=== PATIENT | male | born 1945 | race Caucasian/White ===

== ENCOUNTER 2022-01-07 08:00 | Inpatient (IN) | payer MEDICARE, OTHER ==
[~2022-01-07] VITALS: Ht 164.5 cm; Wt 57.0 kg
[2022-01-07] MEDS ORDERED: ONDANSETRON 4 MG/2 ML (SDV) Z0FRAN IV PRN (09:45)
[2022-01-07] MEDS ORDERED: ACETAMINOPHEN 325 MG TABLET PO PRN (09:45)
[2022-01-07] MEDS ORDERED: MELATONIN 3 MG TABLET PO PRN (09:45)
[2022-01-07] MEDS ORDERED: CALCIUM CARBONATE 500 MG (TUMS) TAB.CHEW PO PRN (09:45)
[2022-01-07] MEDS ORDERED: polyethylene glycoL POWDER 17 GM (MIRALAX) PACK PO PRN ×2 (09:45→14:00)
[2022-01-07] MEDS ORDERED: DILT120T3 PO (10:58)
[2022-01-07] MEDS ORDERED: METO50TA15 PO (10:58)
[2022-01-07] MEDS ORDERED: BENZ100C18 PO (10:58)
[2022-01-07] MEDS ORDERED: BUDE10.2 IH (10:58)
[2022-01-07] MEDS ORDERED: PNV1CAPS15 PO (10:58)
[2022-01-07] MEDS ORDERED: TIOT4MIS2 IH (10:58)
[2022-01-07] MEDS ORDERED: WARF-48 PO ×2 (10:58→15:53)
[2022-01-07] MEDS ORDERED: ALB0.5V INH (10:58)
[2022-01-07] MEDS ORDERED: DOCU-143 PO (10:58)
[2022-01-07] MEDS ORDERED: OMEP20CA18 PO (10:58)
[2022-01-07] MEDS ORDERED: BUSP10TA95 PO (10:58)
[2022-01-07] MEDS ORDERED: GUAI400T86 PO (10:58)
[2022-01-07] MEDS ORDERED: ALBU6.7H8 INH (10:58)
[2022-01-07] MEDS ORDERED: PRD10T PO (10:58)
[2022-01-07] MEDS ORDERED: LISI10TA25 PO (10:58)
[2022-01-07] MEDS ORDERED: LEVO5TAB12 PO (10:58)
[2022-01-07] MEDS ORDERED: POLY17PO54 PO (10:58)
[2022-01-07] MEDS ORDERED: ONDA-105 PO (10:58)
--- NOTE | 2022-01-07 11:37 | History & Physical-Hospitalist ---
History of Present Illness HPI/Chief Complaint Patient is 76-year-old male with past medical history of COPD, atrial fibrillation, lung cancer who presented to the emergency department at [facility] due to shortness of breath. He reports chronic oxygen dependency and shortness of breath but this morning it acutely worsened. He normally is able to belch and get relief but that did not provide him any relief today. He decided to seek evaluation in the emergency department when it persisted and was found to be in atrial fibrillation with rapid ventricular rate in the 160s. He was placed on a Cardizem drip and transferred here for cardiology services. He reports feeling much better now and has no dyspnea. He denies any chest pain, palpitations, diaphoresis, nausea, vomiting. He does report a long history of atrial fibrillation for which she is on Coumadin for anticoagulation. He is unsure what other cardiac meds he is on. He did just moved to town on January 03. He reports being compliant with all of his medications throughout the move. Source: patient Date Seen 01/07/22 Time Seen by a Provider: 10:15 Attending Physician No,Local Physician PCP Admitting Physician: Mao Ingram MD Attending Physician: Mao Ingram MD Referring Physician Date of Admission Jan 07, 2022 at 09:45 Home Medications & Allergies Home Medications Reviewed patient Home Medication Reconciliation performed by pharmacy medication reconciliations pc technician and/or nursing. Patients Allergies have been reviewed. Allergies Allergies Coded Allergies No Allergy Information Available (Unverified01/07/22) Past Icvihyl-Obrxsb-Rfcymz Hx Patient Social History Employed/Student: retired Tobacco Use?: Yes Tobacco type used: Cigarettes Smoking Status: Current Everyday Smoker Use of E-Cig and/or Vaping dev: No Substance use?: No Alcohol Use?: No Pt feels they are or have been: No Current Status Advance Directives: No Communicates: Verbally Primary Language: [place] Citizen Preferred Spoken Language: [place] Citizen Sensory deficits: Hearing impairment Past Medical History Surgeries: Lobectomy COPD Atrial Fibrillation, Hypertension Lung, Esophageal Family Medical History Reviewed Nursing Family Hx Heart Disease Review of Systems Constitutional: No chills, No diaphoresis, No fever, No malaise EENTM: no symptoms reported Respiratory: dyspnea on exertion; No hemoptysis, No phlegm; short of breath Cardiovascular: No chest pain; edema; No palpitations Gastrointestinal: No abdominal pain, No constipation, No diarrhea, No nausea, No vomiting Genitourinary: no symptoms reported Musculoskeletal: no symptoms reported Skin: no symptoms reported Psychiatric/Neurological: No Symptoms Reported Physical Exam Physical Exam Vital Signs Vital Signs - First Documented 01/07/22 01/07/22 10:00 11:41 Temp 36.4 Pulse 149 Resp 23 B/P (MAP) 129/98 Pulse Ox 95 O2 Delivery Nasal Cannula O2 Flow Rate 3.50 Capillary Refill : Height, Weight, BMI Height: '" Weight: lbs. oz. kg; 21.06 BMI Method: General Appearance: No Apparent Distress, WD/WN, Chronically ill, Thin HEENT: PERRL/EOMI, Moist Mucous Membranes; No Scleral Icterus (L), No Scleral Icterus (R) Neck: Normal Inspection, Supple Respiratory: Lungs Clear, No Accessory Muscle Use, No Respiratory Distress Cardiovascular: No JVD, No Murmur, Irregularly Irregular, Tachycardia Gastrointestinal: Normal Bowel Sounds, Non Tender, Soft Extremity: Normal Capillary Refill, No Calf Tenderness, Pedal Edema, Swelling (2+ to calves) Neurologic/Psychiatric: Alert, Oriented x3, Normal Mood/Affect Results Results/Procedures Labs Laboratory Tests 01/08/22 04:55 Patient resulted labs reviewed. Assessment/Plan Admission Diagnosis a fib with RVR Admission Status: Inpatient Order (span 2 midnights) Reason for Inpatient Admission: see below Assessment and Plan a fib with RVR Follows with Dr Hamm in [facility] Currently on cardizem gtt Resume home Warfarin when med rec done Tele Cardiology consulted, appreciate recs Echo ordered COPD Lung Cancer Esophageal cancer Tobacco abuse Wears oxygen at baseline Resume home meds when med rec done Reports cancer in remission but also said it's in his shoulder? Will attempt to get records from [place] Diagnosis/Problems Diagnosis/Problems (1) COPD (chronic obstructive pulmonary disease) Qualifiers: COPD type: emphysema Emphysema type: unspecified Qualified Codes: J43.9 - Emphysema, unspecified (2) Essential (primary) hypertension (3) Tobacco abuse (4) Lung cancer Qualifiers: Laterality: unspecified laterality Lung location: unspecified part of lung Qualified Codes: C34.90 - Malignant neoplasm of unspecified part of unspecified bronchus or lung (5) Esophageal cancer (6) Atrial fibrillation with RVR MAO INGRAM MD Jan 07, 2022 11:37
[2022-01-07] MEDS: dilTIAZem DRIP PRE-MIX 125 ML IV SCH ×2 (12:03→18:03)
--- NOTE | 2022-01-07 13:11 | Tele-ICU Consult ---
History of Present Illness History of Present Illness Time Seen by Provider: 13:11 Date of Admission (Tele-ICU Physician , consultation) Available chart/ vitals / labs / Images reviewed H&P is from ER notes Patient's information available about PMH, Shx, Fhx allergy reviewed in EMR. ROS as per chart and RN report Now in ICU, hemodynamically stable Video assessment done using teleICU camera, rest of exam as per RN Discussed with RN. Consultants: [facility] course: Transferred form outside ER - no labs or images A/P A fib RVR - cardizemn gtt - AC with coumadin - cards consulted - ECHO pending COPD - chronic hypoxic resp failure - home o2 h/o lung ca - no records Lines : (Central Line Necessity Reviewed) Li: OG: Nutrition: Analgesia: Anxiety/ delirium VTE Prophylaxis: Stress Ulcer Prophylaxis: Glycemic Control: Plans in collaboration with bedside consultants and IM MDs. Discussed with RN to reach out if any questions or concerns A total of 31 minutes of critical care time was devoted to this patient today, required to treat and/or prevent further deterioration of critical care condition ( as above ) . Allergies and Home Medications Allergies Coded Allergies: No Allergy Information Available (Unverified , 01/07/22) Home Medications Albuterol Sulfate 2.5 Mg/0.5 Ml Vial.neb, 2.5 MG INH Q4H, (Reported) Albuterol Sulfate 90 Mcg Hfa.aer.ad, 6.7 GM INH PRN, (Reported) Benzonatate 100 Mg Capsule, 100 MG PO TID PRN for COUGH, (Reported) Budesonide/Formoterol Fumarate 160 Mcg-4.5 Mcg/Actuation Hfa.aer.ad, 2 PUFF IH BID, (Reported) Buspirone HCl 10 Mg Tablet, 10 MG PO HS, (Reported) Diltiazem HCl 120 Mg Tablet, 180 MG PO DAILY, (Reported) Docusate Sodium 100 Mg Capsule, 100 MG PO HS, (Reported) Guaifenesin 400 Mg Tablet, 600 MG PO BID PRN for COUGH, (Reported) Levocetirizine Dihydrochloride 5 Mg Tablet, 5 MG PO DAILY, (Reported) Lisinopril 10 Mg Tablet, 10 MG PO DAILY, (Reported) Metoprolol Tartrate 50 Mg Tablet, 50 MG PO BID, (Reported) Omeprazole 20 Mg Capsule.dr, 20 MG PO DAILY, (Reported) Ondansetron HCl 4 Mg Tablet, 4 MG PO Q6H PRN for NAUSEA/VOMITING, (Reported) Pnv Combo#47/Iron/FA #1/Dha 27 Mg Iron-1 Mg-300 Mg Capsule, 1 EACH PO DAILY, (Reported) Polyethylene Glycol 3350 17 Gram Powd.pack, 17 GM PO BID PRN for CONSTIPATION- 1ST LINE, (Reported) Prednisone 10 Mg Tab, 10 MG PO DAILY, (Reported) Tiotropium [place] 2.5 Mcg/Actuation Mist.inhal, 2 PUFF IH DAILY, (Reported) Warfarin Sodium 5 Mg Tablet, 5 MG PO DAILY, (Reported) Past Medical/Social/Family Hx Patient Social History Employed/Student: retired Tobacco Use?: Yes Tobacco type used: Cigarettes Smoking Status: Current Everyday Smoker Use of E-Cig and/or Vaping dev: No Substance use?: No Alcohol Use?: No Pt stated abuse/neglect: No Current Status Advance Directives: No Communicates: Verbally Primary Language: Amharic Preferred Spoken Language: Amharic Sensory deficits: Hearing impairment Review of Systems Constitutional: see HPI Focused Exam Height, Weight, BMI Height: '" Weight: lbs. oz. kg; 21.06 BMI Method: Exam Exam Patient acknowledged, consented, and participated in this virtual visit which was conducted using real time audio/video Vital Signs Date Time Temp Pulse Resp B/P (MAP) Pulse Ox O2 Delivery O2 Flow Rate FiO2 01/07/22 11:41 36.4 01/07/22 11:00 118 17 116/78 94 Nasal Cannula 3.50 01/07/22 10:02 122 01/07/22 10:00 149 23 129/98 95 Nasal Cannula 3.50 Height & Weight Height: '" Weight: lbs. oz. kg; 21.06 BMI Method: General Appearance: No Apparent Distress, WD/WN, Chronically ill, Thin HEENT: PERRL/EOMI, Moist Mucous Membranes; No Scleral Icterus (L), No Scleral Icterus (R) Neck: Normal Inspection, Supple Respiratory: Lungs Clear, No Accessory Muscle Use, No Respiratory Distress Cardiovascular: No JVD, No Murmur, Irregularly Irregular, Tachycardia Extremity: Normal Capillary Refill, No Calf Tenderness, Pedal Edema, Swelling (2+ to calves) Neurologic/Psychiatric: Alert, Oriented x3, Normal Mood/Affect Assessment/Plan Assessment/Plan ` ANSELMO JACOBO MD Jan 07, 2022 13:11
--- NOTE | 2022-01-07 13:13 | Occ Therapy Progress Note ---
Therapy Progress Note OT orders received and chart reviewed. Pt is currently on hold on this date, OT will attempt evaluation tomorrow. Pt's daughter present and state pt is typically independent with ADLs and functional mobility, no AD, as long as he has extra time to complete tasks. RASHEL CUELLAR OT Jan 07, 2022 13:13
--- NOTE | 2022-01-07 13:35 | Physical Therapy Progress Note ---
Therapy Progress Note Patient on Hold per RN due to elevated HR. Will attempt in MATT Min PT Jan 07, 2022 13:35
[2022-01-07] MEDS ORDERED: GUAIFENESIN 600 MG PO PRN (14:00)
[2022-01-07] MEDS ORDERED: RT-ALBUTEROL SULF 2.5 MG/3 ML PRE-MIX VIAL INH PRN (14:00)
[2022-01-07] MEDS ORDERED: BENZONATATE 100 MG (TESSALON) CAPSULE PO PRN (14:00)
[2022-01-07] MEDS ORDERED: guaiFENesin (MUCINEX) 600 MG TAB PO PRN (14:15)
[2022-01-07] MEDS ORDERED: DILT180C84 PO (15:53)
--- NOTE | 2022-01-07 17:10 | Consultation-Cardiology ---
HPI-Cardiology Cardiology Consultation: Date of Consultation 01/07/22 Date of Admission 01/07/22 Attending Physician Sally,Local Physician Admitting Physician Admitting Physician: Evita Kilpatrick MD Attending Physician: Evita Kilpatrick MD Consulting Physician HATTIE HARPER JR, MD HPI: Time Seen by a Provider: 17:53 Chief Complaint: REASON FOR CONSULTATION: Atrial fibrillation and heart failure. I had the pleasure of seeing Mansi in the intensive care unit at [facility] in [place], [place] today. He has a longstanding history of atrial fibrillation and was following with a safety and security manager in [place], [place]. He just moved to [place] last week. He has a history of intermittent episodes of abdominal bl oating. When this happens, he will drink some soda and then he will belch which will help with the bloating. Sometimes when his bloating gets bad, this will make him feel short of breath. Over the past couple of days he has had increasing bloating which has led to worsening shortness of breath. This morning he could barely breathe and was also coughing and went to [facility] for evaluation. He was found to be in atrial fibrillation with a rapid ventricular rate and also heart failure and was placed on intravenous diltiazem infusion and transferred to our hospital for further treatment. When I saw him in the intensive care unit, he wanted to know when he could go home. He does not get palpitations with the atrial fibrillation. He has chronic dyspnea and wears home oxygen. Now he feels as though his breathing is back to normal. He denies chest pain, paroxysmal nocturnal dyspnea, orthopnea, lightheadedness, syncope, or ankle edema. He lives with a daughter who is a traveling RN. She was present with him at the bedside. He denies any history of stroke, myocardial infarction, heart failure, or diabetes. Certain portions of this document may have been dictated utilizing voice recognition technology. Inherent to this technology, typographical and grammatical errors may exist. As much as I am diligent to identify and correct these mistakes, some errors may remain in the document. Review of Systems-Cardiology Review of Systems Other comments Review of 10 organ systems is as per the history of present illness, otherwise negative. ZYX-Uygves-Wycrhw Hx Patient Social History Employed/Student: retired Smoking Status: Current Everyday Smoker Have you traveled recently?: No Alcohol Use?: No Pt feels they are or have been: No Tobacco type used: Cigarettes Past Medical History PMH As described under Assessment. Family Medical History Family Medical History: He did not report a family history of premature coronary artery disease. Allergies and Home Medications Allergies Coded Allergies: No Allergy Information Available (Unverified , 01/07/22) Patient Home Medication List Home Medication List Reviewed: Yes Albuterol Sulfate (Albuterol Sulfate) 2.5 Mg/0.5 Ml Vial.neb, 2.5 MG INH Q4H, (Reported) Entered as Reported by: IRIS PINK on 01/07/221057 Last Action: Reviewed Albuterol Sulfate (Proventil Hfa) 90 Mcg Hfa.aer.ad, 2 PUFF INH Q6H PRN for SHORTNESS OF BREATH, (Reported) Entered as Reported by: IRIS PINK on 01/07/221057 Last Action: Reviewed Budesonide/Formoterol Fumarate (Symbicort 160-4.5 Mcg Inhaler) 160 Mcg-4.5 Mcg/Actuation Hfa.aer.ad, 2 PUFF IH BID, (Reported) Entered as Reported by: IRIS PINK on 01/07/221057 Last Action: Reviewed Buspirone HCl (Buspirone HCl) 10 Mg Tablet, 10 MG PO BID, (Reported) Entered as Reported by: IRIS PINK on 01/07/221057 Last Action: Reviewed Diltiazem HCl (Diltiazem 24Hr Cd) 180 Mg Cap.er.24h, 180 MG PO DAILY, (Reported) Entered as Reported by: JALIL MORALES on 01/07/22 2626 Last Action: Held Docusate Sodium (Colace) 100 Mg Capsule, 100-200 MG PO DAILY PRN for CONSTIPATION-1ST LINE, (Reported) Entered as Reported by: IRIS PINK on 01/07/221057 Last Action: Reviewed Guaifenesin (Guaifenesin) 400 Mg Tablet, 600 MG PO BID PRN for COUGH, (Reported) Entered as Reported by: IRIS PINK on 01/07/221057 Last Action: Reviewed Levocetirizine Dihydrochloride (Levocetirizine Dihydrochloride) 5 Mg Tablet, 5 MG PO DAILY, (Reported) Entered as Reported by: IRIS PINK on 01/07/221057 Last Action: Reviewed Lisinopril (Lisinopril) 10 Mg Tablet, 10 MG PO DAILY, (Reported) Entered as Reported by: IRIS PINK on 01/07/221057 Last Action: Continued Metoprolol Tartrate (Metoprolol Tartrate) 50 Mg Tablet, 50 MG PO BID, (Reported) Entered as Reported by: IRIS PINK on 01/07/221057 Last Action: Held Omeprazole (Omeprazole) 20 Mg Capsule.dr, 20 MG PO DAILY, (Reported) Entered as Reported by: IRIS PINK on 01/07/221057 Last Action: Reviewed Pnv Combo#47/Iron/FA #1/Dha (Pnv-Dha Softgel) 27 Mg Iron-1 Mg-300 Mg Capsule, 1 EACH PO DAILY, (Reported) Entered as Reported by: IRIS PINK on 01/07/221057 Last Action: Reviewed Polyethylene Glycol 3350 (Polyethylene Glycol 3350) 17 Gram Powd.pack, 17 GM PO BID PRN for CONSTIPATION-1ST LINE, (Reported) Entered as Reported by: IRIS PINK on 01/07/221057 Last Action: Reviewed Prednisone (Prednisone) 10 Mg Tab, 10 MG PO DAILY, (Reported) Entered as Reported by: IRIS PINK on 01/07/221057 Last Action: Reviewed Tiotropium [place] (Spiriva Respimat 2.5MCG/ACTUATION) 2.5 Mcg/Actuation Mist.inhal, 2 PUFF IH BID, (Reported) Entered as Reported by: IRIS PINK on 01/07/221057 Last Action: Reviewed Warfarin Sodium (Warfarin Sodium) 5 Mg Tablet, 5 MG PO MO,,TH,SA, (Reported) Entered as Reported by: IRIS PINK on 01/07/221057 Last Action: Reviewed Warfarin Sodium (Warfarin Sodium) 5 Mg Tablet, 2.5 MG PO SHEA,WE,FR, (Reported) Entered as Reported by: JALIL MORALES on 01/07/22 262 Last Action: Held Discontinued Medications Benzonatate (Tessalon Perles) 100 Mg Capsule, 100 MG PO TID PRN for COUGH, (Reported) Discontinued Reason: No Longer Taking Entered as Reported by: IRIS PINK on 01/07/221057 Last Action: Discontinued Diltiazem HCl (Diltiazem HCl) 120 Mg Tablet, 180 MG PO DAILY, (Reported) Discontinued Reason: Duplicate Order Entered as Reported by: IRIS PINK on 01/07/221057 Last Action: Discontinued Ondansetron HCl (Ondansetron HCl) 4 Mg Tablet, 4 MG PO Q6H PRN for NAUSEA/VOMITING, (Reported) Discontinued Reason: No Longer Taking Entered as Reported by: IRIS PINK on 01/07/221057 Last Action: Discontinued Exam Vital Signs Vital Signs Date Time Temp Pulse Resp B/P (MAP) Pulse Ox O2 Delivery O2 Flow Rate FiO2 01/07/22 15:40 Nasal Cannula 4.00 01/07/22 15:00 112 20 113/95 98 01/07/22 11:41 36.4 Physical Exam General: Alert. No acute distress. He is underweight but appears stated age. He is wearing oxygen by nasal cannula. He appears malnourished. Eye: Extraocular movements are intact. Conjunctivae are clear. There are no xanthelasma. HENT: Normocephalic. Atraumatic. Carotid pulsations 2/2 without bruits. Neck: Jugular venous pressure does not appear elevated. No thyromegaly appreciated. Respiratory: Lungs have decreased breath sounds throughout with some scattered inspiratory wheezes. Respirations are non-labored. Breath sounds are equal. Symmetrical chest wall expansion. Cardiovascular: Normal rate. Irregular rhythm. Distant S1/S2. No murmur. No gallop. Point of maximal impulse is not appear displaced. Good pulses equal in all extremities. Trace bilateral pretibial edema. Gastrointestinal: Soft. Normal bowel sounds. Skin: Skin turgor is normal. There is no pallor. Musculoskeletal: No kyphosis or scoliosis appreciated. Neurologic: Alert and oriented to person, place, time. Cranial nerves 3-12 maritza ear grossly intact. The patient has good motor tone strength in the upper and lower extremities bilaterally. Psychiatric: Cooperative. Appropriate mood & affect. Radiology ECHOCARDIOGRAM (01/07/2022): 1. This is a technically difficult study due to poor image quality secondary to poor acoustic windows. Limited measurements could be obtained. 2. Left ventricle: The cavity size is normal. There is mild concentric hypertrophy. Systolic function is moderately reduced. The estimated ejection fraction is 35-40%. Regional wall motion abnormalities cannot be excluded due to poor endocardial definition. The left ventricular diastolic function is indeterminate. 3. Right ventricle: The right ventricle is severely dilated measuring 4.6 cm at the base. Systolic function is normal. TAPSE 1.7 cm. 4. Left atrium: The left atrium is moderately dilated with a volume index ra nging from 35-49 mL/m. 5. Aortic valve: The aortic valve structure is not well visualized but there appears to be leaflet thickening and calcification with restricted leaflet mobility. There is no stenosis. 6. Pulmonary arteries: The estimated pulmonary artery systolic pressure is 33 mmHg assuming a right atrial pressure of 5 mmHg. Diagnosis/Problems Diagnosis/Problems (1) Permanent atrial fibrillation Assessment & Plan: From his description, he has permanent atrial fibrillation. He has been taking metoprolol tartrate and diltiazem for rate control and warfarin for stroke prophylaxis. Now due to his acute on chronic respiratory failure, I suspect this is caused tachycardia. He also has a depressed ejection fraction. I recommend we change his metoprolol to tartrate over to metoprolol succinate. I will attempt to see if we can stop his intravenous diltiazem overnight. Due to low ejection fraction, I would be hesitant to restart diltiazem. I will change his warfarin over to apixaban for stroke prophylaxis. (2) Acute HFrEF (heart failure with reduced ejection fraction) Assessment & Plan: He has no previous history of heart failure. His ejection fraction is 35-40% as outlined above. He has been on metoprolol tartrate which I will international exchange coordinator to metoprolol succinate. He was on lisinopril at home which has been reordered. As above, I would suggest we try to stop his diltiazem since this does not have any role in treatment of heart failure with reduced ejection fraction and could actually make symptoms worse. His ejection fraction is just above the cutoff for recommending a LifeVest. (3) Cardiomyopathy Assessment & Plan: Exact etiology unclear. Some of this may be due to the tachycardia that was occurring during the echocardiogram and there could be some improvement when his tachycardia improves. I will be making medication changes as outlined above. At some point, we may need to consider an ischemic evaluation but I would suggest this be done electively as an outpatient. (4) Primary hypertension Assessment & Plan: I will be making some medication adjustments due to the tachycardia and what seems to be newly diagnosed cardiomyopathy and heart failure. (5) Acute respiratory failure with hypoxia and hypercapnia Assessment & Plan: Most likely multifactorial due to his chronic obstructive pulmonary disease and heart failure. (6) Cancer of upper lobe of right lung Assessment & Plan: He may need to connect with a local oncologist for management. (7) Cigarette smoker Assessment & Plan: He was counseled about smoking cessation. He knows he needs to quit. HATTIE HARPER JR, MD Jan 07, 2022 17:10
[2022-01-07] MEDS ORDERED: meTOproloL SUCCINATE 50 MG (TOPROL XL) TAB PO NR (18:00)
[2022-01-07] MEDS ORDERED: warFARin 5 MG (COUMADIN) TAB PO SCH (18:00)
[2022-01-07] MEDS: RT--FLUTICASONE/SALMETEROL 232-14 (AIRDUO RespiCLICK) IH SCH (19:02)
[2022-01-07] MEDS: RT-ALBUTEROL SULF 2.5 MG/3 ML PRE-MIX VIAL INH SCH ×2 (19:03→22:50)
[2022-01-07] MEDS: APIXABAN 5 MG (ELIQUIS) TABLET PO SCH (20:02)
[2022-01-07] MEDS: DOCUSATE SODIUM 100 MG (COLACE) CAP PO SCH (20:03)
[2022-01-07] MEDS: busPIRone 10 MG (BUSPAR) TAB PO SCH (20:03)
[2022-01-07] MEDS ORDERED: NON-FORMULARY MEDICATION 1 EA EA (Budesonide/Formoterol Fumarate (Symbicort 160-4.5 Mcg In IH SCH (21:00)
[2022-01-07] MEDS ORDERED: busPIRone 10 MG (BUSPAR) TAB PO SCH (21:00)
[2022-01-08] MEDS: dilTIAZem DRIP PRE-MIX 125 ML IV SCH ×3 (00:52→18:27)
[2022-01-08] MEDS: RT-ALBUTEROL SULF 2.5 MG/3 ML PRE-MIX VIAL INH SCH ×6 (02:34→22:03)
[2022-01-08 05:15] LABS: HEMATOCRIT 40 % (40-54); MEAN CORPUSCULAR HEMOGLOBIN 32 pg (25-34); MEAN CORPUSCULAR HGB CONC 33 g/dL (32-36); MEAN CORPUSCULAR VOLUME 100 fL (80-99); MEAN PLATELET VOLUME 10.3 fL (9.0-12.2); PLATELET COUNT 191 10^3/uL (130-400); WHITE BLOOD COUNT 16.4 10^3/uL (4.3-11.0)
[2022-01-08 05:27] LABS: CALCIUM 8.7 MG/DL (8.5-10.1)
[2022-01-08 05:32] LABS: CREATININE SERUM 0.6 MG/DL (0.60-1.30)
[2022-01-08 05:40] LABS: BAND NEUTROPHILS 1 %; LYMPHOCYTES % (MANUAL) 2 %; MONOCYTES % (MANUAL) 3 %; NEUTROPHILS % (MANUAL) 92 %; POIKILOCYTOSIS SLIGHT; PROMYELOCYTES % 2 %
[2022-01-08 05:41] LABS: BURR CELLS SLIGHT; ELLIPT/OVALOCYTES SLIGHT; MICROCYTOSIS SLIGHT
[2022-01-08] MEDS: UMECLIDINIUM BROMIDE (INCRUSE ELLIPTA) 7'S IH SCH (07:48)
[2022-01-08] MEDS: RT--FLUTICASONE/SALMETEROL 232-14 (AIRDUO RespiCLICK) IH SCH ×2 (07:49→22:03)
[2022-01-08] MEDS ORDERED: lisINopril 10 MG (PRINIVIL) TABLET PO SCH (09:00)
[2022-01-08] MEDS ORDERED: warFARin 5 MG (COUMADIN) TAB PO SCH (09:00)
[2022-01-08] MEDS ORDERED: meTOproloL SUCCINATE 50 MG (TOPROL XL) TAB PO SCH (09:00)
[2022-01-08] MEDS ORDERED: NON-FORMULARY MEDICATION 1 EA EA (Tiotropium Bromide (Spiriva Respimat 2.5MCG/ACTUATION) 2 IH SCH (09:00)
[2022-01-08] MEDS ORDERED: LEVOCETIRIZINE 5 MG TAB (XYZAL) NON-FORMULARY PO SCH (09:00)
[2022-01-08] MEDS: LORATADINE (CLARITIN) 10 MG TAB PO SCH (09:59)
[2022-01-08] MEDS: busPIRone 10 MG (BUSPAR) TAB PO SCH ×2 (09:59→20:15)
[2022-01-08] MEDS: APIXABAN 5 MG (ELIQUIS) TABLET PO SCH ×2 (10:00→20:15)
[2022-01-08] MEDS: predniSONE 10 MG TAB PO SCH (10:00)
--- NOTE | 2022-01-08 11:12 | Physical Therapy Evaluation ---
PT Evaluation-General Medical Diagnosis Admission Date Jan 07, 2022 at 09:45 Medical Diagnosis: A-fib with RvR Onset Date: Jan 07, 2022 Therapy Diagnosis Therapy Diagnosis: debility/weakness Precautions Precautions/Isolations: Fall Prevention, Standard Precautions Referral Physician: Finesse Reason for Referral: Evaluation/Treatment Medical History Pertinent Medical History: Atrial Fib, COPD, HTN, Smoking Additional Medical History lung cancer Current History transfer from OSH Reviewed History: Yes Social History Home: Single Level Current Living Status: Alone Prior Prior Level of Function SCALE: Activities may be completed with or without assistive devices. 2-Dkvohnoweu-ayejxmp completes the activity by him/herself with no assistance from a helper. 5-Set-up or Clean-up Assistance-helper sets up or cleans up; patient completes activity. [place] assists only prior to or following the activity. 4-Supervision or Touching Assistance-helper provides verbal cues and/or touching/steadying and/or contact guard assistance as patient completes activity. Assistance may be provided throughout the activity or intermittently. 3-Partial/Moderate Assistance-helper does LESS THAN HALF the effort. [place] lifts, holds or supports trunk or limbs, but provides less than half the effort. 2-Substantial/Maximal Assistance-helper does MORE THAN HALF the effort. [place] lifts or holds trunk or limbs and provides more than half the effort. 8-Xubzmjwzz-htftes does ALL the effort. Patient does none of the effort to complete the activity. Or, the assistance of 2 or more helpers is required for the patient to complete the activity. If activity was not attempted, code reason: 7-Patient Refused. 9-Not Applicable-not attempted and the patient did not perform the activity before the current illness, exacerbation or injury. 10-Not Attempted due to Environmental Limitations-(lack of equipment, weather restraints, etc.). 88-Not Attempted due to Medical Conditions or Safety Concerns. Bed Mobility: 6 Transfers (B,C,W/C): 6 Gait: 6 Stairs: 6 Indoor Mobility (Ambulation): Independent Stairs: Independent Prior Devices Use: None PT Evaluation-Current Subjective Patient agrees to PT. Objective Patient Orientation: Normal For Age Attachments: Oxygen, IV ROM/Strength ROM Lower Extremities bilateral LE WFL Strength Lower Extremities 4-/5 grossly bilateral LE Integumentary/Posture Bowel Incontinence: No Bladder Incontinence: No Posture WFL Neuromuscular (Tone, Coordination, Reflexes) grossly intact Sensory Vision: Functional Hearing: Impaired Transfers Lying to Sitting/Side of Bed(Q: 6 Sit to Stand (QC): 4 Chair/Uel-if-Unsxo Xfer(QC): 4 Gait Mode of Locomotion: Walk Anticipated Mode of Locomotion: Walk Walk 10 feet (QC): 4 Walk 50 ft with 2 Turns(QC): 4 Distance: 50' Gait Assistive Device: FWW Comments/Gait Description noted elevated HR (150's) Balance Sitting Static: Normal Sitting Dynamic: Normal Standing Static: Normal Standing Dynamic: Normal Assessment/Needs 76 y.o. male, will be seen short term by skilled PT to address functional strength and mobility to improve current LOF to safely return to home at maximum LOF. Rehab Potential: Guarded PT Animal Nurse Goals Senior Living Goals PT Senior Living Goals Time Frame: Jan 16, 2022 Roll Left & Right (QC): 6 Sit to Lying (QC): 6 Lying-Sitting on Side/Bed(QC): 6 Sit to Stand (QC): 6 Chair/Klv-vk-Qtchh Xfer(QC): 6 Toilet Transfer (QC): 6 Walk 10 feet (QC): 6 Walk 50ft with 2 Turns (QC): 6 Walk 150 ft (QC): 6 PT Plan Problem List Problem List: Activity Tolerance, Safety Treatment/Plan Treatment Plan: Continue Plan of Care Treatment Plan: Education, Functional Activity Paul, Functional Strength, Gait, Safety, Therapeutic Exercise, Transfers Treatment Duration: Jan 16, 2022 Frequency: 6 times per week Estimated Hrs Per Day: .25 hour per day Patient and/or Family Agrees t: Yes Time/GCodes Time In: 1015 Time Out: 1025 Total Billed Treatment Time: 10 [facility] Jan 08, 2022 11:12
--- NOTE | 2022-01-08 11:25 | Occupational Therapy Eval ---
OT Evaluation-General/PLF Medical Diagnosis Admission Date Jan 07, 2022 at 09:45 Medical Diagnosis: A-fib with RvR Onset Date: Jan 07, 2022 Therapy Diagnosis Therapy Diagnosis: decreased ADL status and weakness Precautions Precautions/Isolations: Fall Prevention, Standard Precautions Referral Physician: Finesse Referral Reason: Evaluation/Treatment Medical History Pertinent Medical History: Atrial Fib, COPD, HTN, Smoking Additional Medical History COPD, HTN, lung and esophageal cancer, and lobectomy Current History Admitted to ED on 01/07 with SOB, found to be in afib with RVR in 160s. Social History Home: Single Level (mobile home) Current Living Status: Alone Steps Into Home: 3 Pt says he is in the process of obtaining a ramp. ADL-Prior Level of Function SCALE: Activities may be completed with or without assistive devices. 3-Afdkulxteu-ekikdsm completes the activity by him/herself with no assistance from a helper. 5-Set-up or Clean-up Assistance-helper sets up or cleans up; patient completes activity. [place] assists only prior to or following the activity. 4-Supervision or Touching Assistance-helper provides verbal cues and/or touching/steadying and/or contact guard assistance as patient completes activity. Assistance may be provided throughout the activity or intermittently. 3-Partial/Moderate Assistance-helper does LESS THAN HALF the effort. [place] lifts, holds or supports trunk or limbs, but provides less than half the effort. 2-Substantial/Maximal Assistance-helper does MORE THAN HALF the effort. [place] lifts or holds trunk or limbs and provides more than half the effort. 1-Sfpahrzls-lxiiqq does ALL the effort. Patient does none of the effort to complete the activity. Or, the assistance of 2 or more helpers is required for the patient to complete the activity. If activity was not attempted, code reason: 7-Patient Refused. 9-Not Applicable-not attempted and the patient did not perform the activity before the current illness, exacerbation or injury. 10-Not Attempted due to Environmental Limitations-(lack of equipment, weather restraints, etc.). 88-Not Attempted due to Medical Conditions or Safety Concerns. ADL PLOF Comments Pt reports being IND for most ADLs although his daughter added "with increased time." He only takes sponge baths d/t decreased activity tolerance with showering and it being too difficult to get into smaller tub in his trailer. He wears O2 at baseline and did not use any AE, DME, or AD at PLOF. He lives in a mobile home, and his daughter lives in the mobile home across from him (~20ft away), so she checks on him regularly and helps PRN. Self Care: Independent Functional Cognition: Independent OT Current Status Subjective Pt seated in chair playing [employer] college [employer] upon OT arrival, agreeable to eval/tx. Pt verbalized that he would like to receive OT services to increase BUE strength and endurance to increase his IND in self-care tasks. Mental Status/Objective Patient Orientation: Person, Place, Situation Attachments: IV, Oxygen (2L via NC), Telemetry Current Dentures/Partials: Yes Upper Extremity ROM WFL. ~130 degrees of bilateral shoulder flexion Upper Extremity Sensation Pt denies any dumbness and tingling in BUE. ADL-Treatment Oral Hygiene (QC): 5 (seated in chair) On/Off Footwear (QC): 6 Other Treatments Pt remained seated in recliner and provided information about PLOF and living environment. He participated in BUE screen, IND donned/doffed gripper socks, and completed oral hygiene/grooming tasks seated in chair with set up assist. Pt educated on the purpose of OT tx in increasing BUE strength, endurance, and activity tolerance needed to complete self-care activities, pt understood and agreeable. Pt's HR between 100-130's throughout tx. Post tx, pt left in recliner, call light in reach and all needs met. Education OT Patient Education: Correct positioning, Exercise program, Modified ADL techniques, Progress toward Goal/Update tx plan, Purpose of tx/functional activities, Rehab process Teaching Recipient: Patient Teaching Methods: Discussion Response to Teaching: Verbalize Understanding OT Long-Term Goals Supervisor Testing Goals Time Frame: Jan 29, 2022 Eating (QC): 6 Oral Hygiene (QC): 6 Toileting Hygiene (QC): 6 Shower/Bathe Self (QC): 6 Upper Body Dressing (QC): 6 Lower Body Dressing (QC): 6 On/Off Footwear (QC): 6 Additional Goals: 1-Demonstrate ADL Tasks, 2-Verbalize Understanding, 3- ImproveStrength/Paul 1=Demonstrate adherence to instructed precautions during ADL tasks. 2=Patient will verbalize/demonstrate understanding of assistive devices/modifications for ADL. 3=Patient will improve strength/tolerance for activity to enable patient to perform ADL's. OT Education/Plan Problem List/Assessment Assessment: Decreased Activ Tolerance, Decreased UE Strength, Impaired Funct Balance, Impaired I ADL's, Impaired Self-Care Skills Pt would benefit from BUE exercises to increase strength and activity tolerance for self-care tasks. Discharge Recommendations Plan/Recommendations: Continue POC Treatment Plan/Plan of Care Patient would benefit from OT for education, treatment and training to promote independence in ADL's, mobility, safety and/or upper extremity function for ADL's. Plan of Care: ADL Retraining, Functional Mobility, UE Funct Exercise/Act Treatment Duration: Jan 29, 2022 Frequency: 3 times per week (3-5x/wk) Estimated Hrs Per Day: .25 hour per day Rehab Potential: Guarded Time/GCodes Start Time: 11:09 Stop Time: 11:19 Total Time Billed (hr/min): 10 Billed Treatment Time 1, EVM (10') RASHEL CUELLAR OT Jan 08, 2022 11:25
--- NOTE | 2022-01-08 11:46 | Tele-ICU Progress Note ---
Subjective Date Seen by a Provider: Jan 08, 2022 Time Seen by a Provider: 11:41 Subjective/Events-last exam Available chart/vitals/labs/images reviewed. Video assessment done using telemetry ICU camera, rest of exam as per RN. Discussion with the RN, exam as per RN. Hospital course Today patient is on Cardizem drip for atrial fibrillation with rapid ventricular rate. His heart rate is still ranging anywhere from 110-230/min. He is sitting in the chair. No respiratory distress present. He offers no complaints. No telemetry ICU consult for this patient however I am reviewing the patient for telemetry ICU protocol. His left-ventricular ejection fraction is 35-40%. Review of Systems ros per rn Sepsis Event Evaluation Height, Weight, BMI Height: '" Weight: lbs. oz. kg; 21.06 BMI Method: Exam Exam Patient acknowledged, consented, and participated in this virtual visit which was conducted using real time audio/video Vital Signs Date Time Temp Pulse Resp B/P (MAP) Pulse Ox O2 Delivery O2 Flow Rate FiO2 01/08/22 11:00 101 14 92/70 94 Nasal Cannula 2.00 01/08/22 10:54 96 Nasal Cannula 2.00 01/08/22 10:00 117 21 106/72 94 Nasal Cannula 2.00 01/08/22 09:00 130 15 102/90 94 Nasal Cannula 2.00 01/08/22 08:00 104 20 114/94 92 Nasal Cannula 2.00 01/08/22 08:00 Nasal Cannula 2.00 01/08/22 07:55 94 Nasal Cannula 2.00 01/08/22 07:54 94 Nasal Cannula 2.00 01/08/22 07:49 98 Nasal Cannula 4.00 01/08/22 07:00 106 01/08/22 07:00 105 23 104/86 96 Nasal Cannula 4.00 01/08/22 06:00 100 16 116/83 100 Nasal Cannula 4.00 01/08/22 05:00 122 17 120/87 97 Nasal Cannula 4.00 01/08/22 04:00 113 18 107/73 100 Nasal Cannula 4.00 01/08/22 04:00 Nasal Cannula 4.00 01/08/22 03:00 142 18 102/66 97 Nasal Cannula 4.00 01/08/22 02:34 96 Nasal Cannula 4.00 01/08/22 02:00 117 18 113/84 100 Nasal Cannula 4.00 01/08/22 01:00 100 01/08/22 01:00 112 18 104/75 100 Nasal Cannula 4.00 01/08/22 00:00 84 20 102/68 99 Nasal Cannula 4.00 01/07/22 23:59 Nasal Cannula 4.00 01/07/22 23:00 99 20 109/65 98 Nasal Cannula 4.00 01/07/22 22:51 98 Nasal Cannula 4.00 01/07/22 22:00 95 20 113/59 95 Nasal Cannula 4.00 01/07/22 21:00 138 23 97/65 97 Nasal Cannula 4.00 01/07/22 20:00 Nasal Cannula 4.00 01/07/22 20:00 115 20 115/77 97 Nasal Cannula 4.00 01/07/22 19:04 95 Nasal Cannula 4.00 01/07/22 19:00 111 18 116/94 94 Nasal Cannula 4.00 01/07/22 19:00 124 01/07/22 18:00 129 20 109/93 98 Nasal Cannula 3.50 01/07/22 17:00 147 18 135/110 97 Nasal Cannula 3.50 01/07/22 16:00 135 17 108/83 96 Nasal Cannula 3.50 01/07/22 15:40 Nasal Cannula 4.00 01/07/22 15:00 112 20 113/95 98 Nasal Cannula 3.50 01/07/22 14:00 116 20 115/91 98 Nasal Cannula 3.50 01/07/22 13:00 112 01/07/22 13:00 112 18 122/75 98 Nasal Cannula 3.50 01/07/22 12:00 124 18 120/90 96 Nasal Cannula 3.50 I & O 01/08/22 07:00 Intake Total 825 ml Output Total 775 ml Balance 50 ml Height & Weight Height: '" Weight: lbs. oz. kg; 21.06 BMI Method: General Appearance: No Apparent Distress, WD/WN, Chronically ill, Thin HEENT: PERRL/EOMI, Moist Mucous Membranes; No Scleral Icterus (L), No Scleral Icterus (R) Neck: Normal Inspection, Supple Respiratory: Lungs Clear, No Accessory Muscle Use, No Respiratory Distress Cardiovascular: No JVD, No Murmur, Irregularly Irregular, Tachycardia Extremity: Normal Capillary Refill, No Calf Tenderness, Pedal Edema, Swelling (2+ to calves) Neurologic/Psychiatric: Alert, Oriented x3, Normal Mood/Affect Other comments PE PER RN Results Lab Laboratory Tests 01/08/22 04:55 Assessment/Plan Assessment/Plan 1. Chronic atrial fibrillation with rapid ventricular rate. 2. Acute on chronic systolic congestive heart failure 3. COPD exacerbation with acute and chronic respiratory failure 4. History of lung cancer right upper lobe. 5. Anxiety disorder Recommendations 1. Atrial fibrillation and congestive heart failure management per cardiology 2. Continue anticoagulant therapy with apixaban 3. Continue bronchodilator therapy and a prednisone 4. Suggest oncology consultation once he is stabilized from the acute problem now and this could be done as an outpatient. Video visit made and discussed with the [facility]ER Collaboration of care with bedside consultants and IM physicians Critical Care: Critically Ill Patient Time spent with patient (mins): 15 COLLETTE MARTI MD Jan 08, 2022 11:46
--- NOTE | 2022-01-08 12:27 | Progress Note - Hospitalist ---
Subjective HPI/CC On Admission Date Seen by Provider: Jan 08, 2022 Time Seen by Provider: 12:25 Patient is 76-year-old male with past medical history of COPD, atrial fibrillation, lung cancer who presented to the emergency department at [facility] due to shortness of breath. He reports chronic oxygen dependency and shortness of breath but this morning it acutely worsened. He normally is able to belch and get relief but that did not provide him any relief today. He decided to seek evaluation in the emergency department when it persisted and was found to be in atrial fibrillation with rapid ventricular rate in the 160s. He was placed on a Cardizem drip and transferred here for cardiology services. He reports feeling much better now and has no dyspnea. He denies any chest pain, palpitations, diaphoresis, nausea, vomiting. He does report a long history of atrial fibrillation for which she is on Coumadin for anticoagulation. He is unsure what other cardiac meds he is on. He did just moved to town on January 03. He reports being compliant with all of his medications throughout the move. Subjective/Events-last exam Pt reports feeling much better. Hr stil 110-115 while I was at bedside on cardizem gtt. He is requesting DC home. We discussed how his heart needs more time and he says "we'll see." Objective Exam Vital Signs Vital Signs Date Time Temp Pulse Resp B/P (MAP) Pulse Ox O2 Delivery O2 Flow Rate FiO2 01/08/22 12:00 93 14 108/75 98 Nasal Cannula 2.00 01/07/22 11:41 36.4 Capillary Refill : General Appearance: No Apparent Distress, Chronically ill, Thin Respiratory: Lungs Clear, No Respiratory Distress Cardiovascular: Irregularly Irregular, Tachycardia Gastrointestinal: Normal Bowel Sounds, Non Tender, Soft Neurologic/Psychiatric: Alert, Oriented x3 Results/Procedures Lab Laboratory Tests 01/08/22 04:55 Patient resulted labs reviewed. Assessment/Plan Assessment and Plan Assess & Plan/Chief Complaint a fib with RVR Follows with Dr Hamm in [place] Currently on cardizem gtt- still tachycardiac Eliquis added by cardiology Tele Cardiology consulted, appreciate recs Echo with newly diagnosed cardiomyopathy Discussed with Dr Ward today given persistently elevated HR on gtt, he reports he will adjust medications COPD Lung Cancer Esophageal cancer Tobacco abuse Wears oxygen at baseline Continue home meds Reports cancer in remission but also said it's in his shoulder? Will attempt to get records from [place]- still waiting for these DVT ppx: [facility] Critical Care Critically Ill Patient Diagnosis/Problems Diagnosis/Problems (1) COPD (chronic obstructive pulmonary disease) Qualifiers: COPD type: emphysema Emphysema type: unspecified Qualified Codes: J43.9 - Emphysema, unspecified (2) Essential (primary) hypertension (3) Tobacco abuse (4) Lung cancer Qualifiers: Laterality: unspecified laterality Lung location: unspecified part of lung Qualified Codes: C34.90 - Malignant neoplasm of unspecified part of unspecified bronchus or lung (5) Esophageal cancer (6) Atrial fibrillation with RVR MAO INGRAM MD Jan 08, 2022 12:27
--- NOTE | 2022-01-08 13:21 | Cardiology Progress Note ---
Progress Note-Cardiology Events since last exam Date Seen by Provider: Jan 08, 2022 Time Seen by Provider: 16:20 Events since last exam I am following him due to atrial fibrillation and acute heart failure with re duced ejection fraction. He feels as though his breathing is about baseline. He denies chest discomfort, palpitations, syncope, or ankle edema. Despite starting him on oral metoprolol succinate, the nurse has not been able to wean off the intravenous diltiazem infusion. Certain portions of this document may have been dictated utilizing voice recognition technology. Inherent to this technology, typographical and grammatical errors may exist. As much as I am diligent to identify and correct these mistakes, some errors may remain in the document. Vitals Last set of Vitals Signs Vital Signs 01/07/22 01/08/22 01/08/22 11:41 15:13 16:00 Temp 36.4 Pulse 97 Resp 22 B/P (MAP) 112/64 Pulse Ox 95 O2 Delivery Nasal Cannula O2 Flow Rate 2.00 Labs Labs Laboratory Tests 01/08/22 04:55 Exam Vital Signs Vital Signs Date Time Temp Pulse Resp B/P (MAP) Pulse Ox O2 Delivery O2 Flow Rate FiO2 01/08/22 16:00 97 22 112/64 Nasal Cannula 2.00 01/08/22 15:13 95 01/07/22 11:41 36.4 Physical Exam General: Alert. No acute distress. He is wearing oxygen by nasal cannula. He appears underweight and chronically ill. Eye: No xanthelasma. HENT: Normocephalic. Neck: Jugular venous pressure does not appear elevated. Respiratory: Lungs are clear to auscultation but with the diffusely decreased breath sounds throughout. Respirations are non-labored. Breath sounds are equal. Symmetrical chest wall expansion. Cardiovascular: Tachycardia with a regular rhythm. Distant S1/S2. No murmur. No gallop. No edema. Gastrointestinal: Soft. Normal bowel sounds. Skin: Warm. Dry. Neurologic: Alert and oriented to person, place, time. Cranial nerves 3-11 grossly intact. Psychiatric: Cooperative. Appropriate mood & affect. Labs Laboratory Tests Test 01/08/22 04:55 Range/Units White Blood Count 16.4 H 4.3-11.0 10^3/uL Red Blood Count 4.01 L 4.30-5.52 10^6/uL Hemoglobin 13.0 L 13.3-17.7 g/dL Hematocrit 40 40-54 % Mean Corpuscular Volume 100 H 80-99 fL Mean Corpuscular Hemoglobin 32 25-34 pg Mean Corpuscular Hemoglobin Concent 33 32-36 g/dL Red Cell Distribution Width 14.0 10.0-14.5 % Platelet Count 191 130-400 10^3/uL Mean Platelet Volume 10.3 9.0-12.2 fL Neutrophils % (Manual) 92 % Lymphocytes % (Manual) 2 % Monocytes % (Manual) 3 % Promyelocytes % 2 % Band Neutrophils 1 % Poikilocytosis SLIGHT Microcytosis SLIGHT [place] Cells SLIGHT Elliptocytes SLIGHT Sodium Level 137 135-145 MMOL/L Potassium Level 4.0 3.6-5.0 MMOL/L Chloride Level 102 98-107 MMOL/L Carbon Dioxide Level 24 21-32 MMOL/L Anion Gap 11 5-14 MMOL/L Blood Urea Nitrogen 15 7-18 MG/DL Creatinine 0.60 0.60-1.30 MG/DL Estimat Glomerular Filtration Rate 101 BUN/Creatinine Ratio 25 Glucose Level 118 H 70-105 MG/DL Calcium Level 8.7 8.5-10.1 MG/DL Diagnosis/Problems Diagnosis/Problems (1) Permanent atrial fibrillation Assessment & Plan: From his description, he most likely has permanent atrial fi brillation. He had been taking metoprolol tartrate and diltiazem for rate control and warfarin for stroke prophylaxis. Now due to his acute on chronic respiratory failure, I suspect this is caused tachycardia. He also has a depressed ejection fraction. I changed his metoprolol to tartrate over to metoprolol succinate on 01/07. I will increase the dose of metoprolol succinate today and also give him a dose of metoprolol tartrate intravenously. Due to low ejection fraction, I would be hesitant to restart diltiazem. I also changed his warfarin over to apixaban for stroke prophylaxis. Until we can get his tachycardia under control with oral medication and weaned off the diltiazem infusion, he will need to stay in the hospital. If the tachycardia persists despite changing the beta-daniel, we may need to add low-dose digoxin although this is a third line agent in the management of atrial fibrillation in the current year. (2) Acute HFrEF (heart failure with reduced ejection fraction) Assessment & Plan: He has no previous history of heart failure. His ejection fraction is 35-40% as outlined above. He is on metoprolol succinate. He was on lisinopril at home which has been reordered but I reduced the dose so we could give him more beta-daniel. As above, I would suggest we try to stop his diltiazem since this does not have any role in treatment of heart failure with reduced ejection fraction and could actually make symptoms worse. His ejection fraction is just above the cutoff for recommending a LifeVest. I have ordered a chest x-ray as well. (3) Cardiomyopathy Assessment & Plan: Exact etiology unclear. Some of this may be due to the tachycardia that was occurring during the echocardiogram and there could be some improvement when his tachycardia improves. I will be making medication changes as outlined above. At some point, we may need to consider an ischemic evaluation but I would suggest this be done electively as an outpatient. (4) Primary hypertension Assessment & Plan: I will be making some medication adjustments due to the tachycardia and what seems to be newly diagnosed cardiomyopathy and heart failure. We will need to monitor his blood pressure closely with the adjustment of the medication for the atrial fibrillation and heart failure. (5) Acute respiratory failure with hypoxia and hypercapnia Assessment & Plan: Most likely multifactorial due to his chronic obstructive pulmonary disease and heart failure. (6) Cancer of upper lobe of right lung Assessment & Plan: He may need to connect with a local oncologist for manag ement. (7) Cigarette smoker Assessment & Plan: He was counseled about smoking cessation. He knows he needs to quit. HATTIE HARPER JR, MD Jan 08, 2022 13:21
[2022-01-08] MEDS ORDERED: meTOprolol 5 MG/5 ML (LOPRESSOR) VIAL ONE (16:29)
[2022-01-08] MEDS ORDERED: meTOprolol 5 MG/5 ML (LOPRESSOR) VIAL IV ONE (16:30)
--- NOTE | 2022-01-08 17:01 | Diagnostic Imaging Report ---
INDICATION: Dyspnea. EXAMINATION: Two view chest. FINDINGS: There are some chronic features of COPD. There is blunting of the left costophrenic angle and posterior sulcus consistent with a small left subpulmonic effusion. No focal alveolar consolidation. The heart is upper limits of size. No free air beneath the diaphragms. IMPRESSION: Some chronic prominence of the lung markings and COPD. Subpulmonic effusion on the left. No overt failure pattern. Dictated on workstation # [id number]
[2022-01-08] MEDS ORDERED: warFARin 2.5 MG (COUMADIN) TAB PO SCH (18:00)
[2022-01-08] MEDS: meTOproloL SUCCINATE 50 MG (TOPROL XL) TAB PO SCH (20:16)
[2022-01-08] MEDS: DOCUSATE SODIUM 100 MG (COLACE) CAP PO SCH (20:16)
[2022-01-09] MEDS: RT-ALBUTEROL SULF 2.5 MG/3 ML PRE-MIX VIAL INH SCH ×6 (02:43→22:35)
[2022-01-09 04:39] LABS: HEMATOCRIT 40 % (40-54); HEMOGLOBIN 13.3 g/dL (13.3-17.7); MEAN CORPUSCULAR HEMOGLOBIN 33 pg (25-34); MEAN CORPUSCULAR HGB CONC 33 g/dL (32-36); MEAN CORPUSCULAR VOLUME 100 fL (80-99); MEAN PLATELET VOLUME 10.2 fL (9.0-12.2); PLATELET COUNT 215 10^3/uL (130-400); WHITE BLOOD COUNT 15.9 10^3/uL (4.3-11.0)
[2022-01-09 04:46] LABS: POTASSIUM 3.9 MMOL/L (3.6-5.0)
[2022-01-09 04:47] LABS: CALCIUM 8.7 MG/DL (8.5-10.1)
[2022-01-09 04:52] LABS: CREATININE SERUM 0.63 MG/DL (0.60-1.30)
[2022-01-09] MEDS: UMECLIDINIUM BROMIDE (INCRUSE ELLIPTA) 7'S IH SCH (06:45)
[2022-01-09] MEDS: RT--FLUTICASONE/SALMETEROL 232-14 (AIRDUO RespiCLICK) IH SCH ×2 (06:54→18:41)
[2022-01-09] MEDS: LORATADINE (CLARITIN) 10 MG TAB PO SCH (08:04)
[2022-01-09] MEDS: APIXABAN 5 MG (ELIQUIS) TABLET PO SCH ×2 (08:05→21:30)
[2022-01-09] MEDS: meTOproloL SUCCINATE 50 MG (TOPROL XL) TAB PO SCH ×2 (08:05→21:30)
[2022-01-09] MEDS: lisINopril 5 MG (PRINIVIL) TABLET PO SCH (08:05)
[2022-01-09] MEDS: predniSONE 10 MG TAB PO SCH (08:05)
[2022-01-09] MEDS: busPIRone 10 MG (BUSPAR) TAB PO SCH ×2 (08:05→21:29)
--- NOTE | 2022-01-09 08:52 | Tele-ICU Progress Note ---
Progress Note video rounds completed 76 y/o male with afib/RVR Being followed by cardiology On apixaban and diltaizem drip and po beta daniel PE: sitting up in chair, appears comfortable HR 100/ a fib No new issues plans as per cardiology Focused Exam Height, Weight, BMI Height: '" Weight: lbs. oz. kg; 21.06 BMI Method: Laboratory Tests 01/09/22 04:33 Results Results/Procedures Labs Laboratory Tests 01/08/22 04:55 01/09/22 04:33 Patient resulted labs reviewed. Results Labs Labs Laboratory Tests 01/09/22 04:33: White Blood Count 15.9H, Red Blood Count 4.00L, Hemoglobin 13.3, Hematocrit 40, Mean Corpuscular Volume 100H, Mean Corpuscular Hemoglobin 33, Mean Corpuscular Hemoglobin Concent 33, Red Cell Distribution Width 14.2, Platelet Count 215, Mean Platelet Volume 10.2, Sodium Level 141, Potassium Level 3.9, Chloride Level 105, Carbon Dioxide Level 24, Anion Gap 12, Blood Urea Nitrogen 19H, Creatinine 0.63, Estimat Glomerular Filtration Rate 100, BUN/Creatinine Ratio 30, Glucose Level 118H, Calcium Level 8.7 JENN INTERIANO MD Jan 09, 2022 08:52
[2022-01-09] MEDS ORDERED: lisINopril 10 MG (PRINIVIL) TABLET PO SCH (09:00)
[2022-01-09] MEDS ORDERED: clonazePAM 0.5 MG (KlonoPIN) TAB PO NR (09:00)
[2022-01-09] MEDS ORDERED: DIGOXIN 0.25 MG/ML (LANOXIN) 2 ML AMP IV NR (09:00)
[2022-01-09] MEDS ORDERED: DIGOXIN 0.125 MG (LANOXIN) TAB PO SCH (09:00)
[2022-01-09] MEDS ORDERED: meTOproloL SUCCINATE 50 MG (TOPROL XL) TAB PO SCH (09:00)
--- NOTE | 2022-01-09 09:05 | Cardiology Progress Note ---
Progress Note-Cardiology Events since last exam Date Seen by Provider: Jan 09, 2022 Time Seen by Provider: 09:04 Events since last exam He remains in the intensive care unit on intravenous diltiazem. Overnight, the nurses had to increase the diltiazem rate due to worsening tachycardia. This morning it was sitting up in his chair. His daughter was at the bedside. He wants to go home. He states his breathing is at his baseline. He denies chest discomfort, palpitations, syncope, or ankle edema. Certain portions of this document may have been dictated utilizing voice recognition technology. Inherent to this technology, typographical and grammatical errors may exist. As much as I am diligent to identify and correct these mistakes, some errors may remain in the document. Vitals Last set of Vitals Signs Vital Signs 01/07/22 01/09/22 11:41 08:00 Temp 36.4 Pulse 128 Resp 20 B/P (MAP) 107/79 Pulse Ox 95 O2 Delivery Nasal Cannula O2 Flow Rate 2.00 Labs Labs Laboratory Tests 01/09/22 04:33 Exam Vital Signs Vital Signs Date Time Temp Pulse Resp B/P (MAP) Pulse Ox O2 Delivery O2 Flow Rate FiO2 01/09/22 08:00 128 20 107/79 95 Nasal Cannula 2.00 01/07/22 11:41 36.4 Physical Exam General: Alert. No acute distress. He is underweight and appears chronically ill. Eye: No xanthelasma. HENT: Normocephalic. Neck: Jugular venous pressure does not appear elevated. Respiratory: Lungs are clear to auscultation but with decreased breath sounds throughout. Respirations are non-labored. Breath sounds are equal. Symmetrical chest wall expansion. Cardiovascular: Tachycardia with irregular rhythm. No murmur. No gallop. No edema. Gastrointestinal: Soft. Normal bowel sounds. Skin: Warm. Dry. Neurologic: Alert and oriented to person, place, time. Cranial nerves 3-11 grossly intact. Psychiatric: Cooperative. Appropriate mood & affect. Labs Laboratory Tests Test 01/09/22 04:33 Range/Units White Blood Count 15.9 H 4.3-11.0 10^3/uL Red Blood Count 4.00 L 4.30-5.52 10^6/uL Hemoglobin 13.3 13.3-17.7 g/dL Hematocrit 40 40-54 % Mean Corpuscular Volume 100 H 80-99 fL Mean Corpuscular Hemoglobin 33 25-34 pg Mean Corpuscular Hemoglobin Concent 33 32-36 g/dL Red Cell Distribution Width 14.2 10.0-14.5 % Platelet Count 215 130-400 10^3/uL Mean Platelet Volume 10.2 9.0-12.2 fL Sodium Level 141 135-145 MMOL/L Potassium Level 3.9 3.6-5.0 MMOL/L Chloride Level 105 98-107 MMOL/L Carbon Dioxide Level 24 21-32 MMOL/L Anion Gap 12 5-14 MMOL/L Blood Urea Nitrogen 19 H 7-18 MG/DL Creatinine 0.63 0.60-1.30 MG/DL Estimat Glomerular Filtration Rate 100 BUN/Creatinine Ratio 30 Glucose Level 118 H 70-105 MG/DL Calcium Level 8.7 8.5-10.1 MG/DL Diagnosis/Problems Diagnosis/Problems (1) Permanent atrial fibrillation Assessment & Plan: From his description, he most likely has permanent atrial fibrillation. Prior to admission, he had been taking metoprolol tartrate and diltiazem for rate control and warfarin for stroke prophylaxis. Now due to his acute on chronic respiratory failure, I suspect this caused tachycardia. He a lso has a depressed ejection fraction. I changed his metoprolol to tartrate over to metoprolol succinate on 01/07. I will increased the dose to twice daily on 01/08 and also gave him a dose of intravenous metoprolol tartrate. Due to the low ejection fraction, I would be hesitant to restart diltiazem. I also changed his warfarin over to apixaban for stroke prophylaxis. Until we can get his tachycardia under control with oral medication and weaned off the diltiazem infusion, he will need to stay in the hospital. I will give him 1 dose of intravenous digoxin and start him on low-dose oral digoxin. (2) Acute HFrEF (heart failure with reduced ejection fraction) Assessment & Plan: He has no previous history of heart failure. His ejection fraction is 35-40%. He is on metoprolol succinate. He was on lisinopril at home which has been reordered but I reduced the dose so we could give him more beta-daniel. As above, I would suggest we try to stop his diltiazem since this does not have any role in treatment of heart failure with reduced ejection fraction and could actually make symptoms worse. His ejection fraction is just above the cutoff for recommending a LifeVest. His chest x-ray from 01/08 did not show any overt pulmonary edema. (3) Cardiomyopathy Assessment & Plan: Exact etiology unclear. Some of this may be due to the tachycardia that was occurring during the echocardiogram and there could be some improvement when his tachycardia improves. I will be making medication changes as outlined above. At some point, we may need to consider an ischemic evaluation but I would suggest this be done electively as an outpatient. (4) Primary hypertension Assessment & Plan: I will be making some medication adjustments due to the tachycardia and what seems to be newly diagnosed cardiomyopathy and heart failure. We will need to monitor his blood pressure closely with the adjustment of the medication for the atrial fibrillation and heart failure. (5) Generalized anxiety disorder Assessment & Plan: Unclear whether or not this could be contributing to the tachycardia. He has been taking buspirone at home and is receiving it here. I will give him a one-time dose of clonazepam. (6) Acute respiratory failure with hypoxia and hypercapnia Assessment & Plan: Most likely multifactorial due to his chronic obstructive pulmonary disease and heart failure. (7) Cancer of upper lobe of right lung Assessment & Plan: He may need to connect with a local oncologist for management. (8) Chronic obstructive pulmonary disease Assessment & Plan: As above. (9) Cigarette smoker Assessment & Plan: He was counseled about smoking cessation. He knows he needs to quit. HATTIE HARPER JR, MD Jan 09, 2022 09:05
--- NOTE | 2022-01-09 09:05 | Physical Therapy Daily Note ---
PT Daily Note-Current Subjective Patient sitting in the chair upon PT arrival, agreeable to treatment. Mental Status Patient Orientation: Person, Place Attachments: Oxygen, IV Transfers SCALE: Activities may be completed with or without assistive devices. 4-Skzpnghsmm-htawupe completes the activity by him/herself with no assistance from a helper. 5-Set-up or Clean-up Assistance-helper sets up or cleans up; patient completes activity. [place] assists only prior to or following the activity. 4-Supervision or Touching Assistance-helper provides verbal cues and/or touching/steadying and/or contact guard assistance as patient completes a ctivity. Assistance may be provided throughout the activity or intermittently. 3-Partial/Moderate Assistance-helper does LESS THAN HALF the effort. [place] lifts, holds or supports trunk or limbs, but provides less than half the effort. 2-Substantial/Maximal Assistance-helper does MORE THAN HALF the effort. [place] lifts or holds trunk or limbs and provides more than half the effort. 1-Zzsosaalg-xmwmfw does ALL the effort. Patient does none of the effort to complete the activity. Or, the assistance of 2 or more helpers is required for the patient to complete the activity. If activity was not attempted, code reason: 7-Patient Refused. 9-Not Applicable-not attempted and the patient did not perform the activity before the current illness, exacerbation or injury. 10-Not Attempted due to Environmental Limitations-(lack of equipment, weather restraints, etc.). 88-Not Attempted due to Medical Conditions or Safety Concerns. Sit to Stand (QC): 4 Chair/Lny-ja-Zbkts Xfer(QC): 4 Gait Training Does the Patient Walk?: Yes Distance: 120 Walk 10 feet (QC): 4 Walk 50 ft with 2 Turns(QC): 4 Gait Assistive Device: FWW Assessment Current Status: Fair Progress Patient tolerated treatment well. Demonstrates SBA for all observed transfers. Patient ambulates 120 feet with FWW, with SBA and verbal cues for safety and progression. Patient in chair post treatment with all needs met, nursing notified and call light in hand. PT [facility] Goals Group Product Manager Goals PT Group Product Manager Goals Time Frame: Jan 16, 2022 Roll Left & Right (QC): 6 Sit to Lying (QC): 6 Lying-Sitting on Side/Bed(QC): 6 Sit to Stand (QC): 6 Chair/Bog-em-Maxrk Xfer(QC): 6 Toilet Transfer (QC): 6 Walk 10 feet (QC): 6 Walk 50ft with 2 Turns (QC): 6 Walk 150 ft (QC): 6 PT Plan Treatment/Plan Treatment Plan: Continue Plan of Care Treatment Plan: Education, Functional Activity Paul, Functional Strength, Gait, Safety, Therapeutic Exercise, Transfers Treatment Duration: Jan 16, 2022 Frequency: 6 times per week Estimated Hrs Per Day: .25 hour per day Patient and/or Family Agrees t: Yes Safety Risks/Education Patient Education: Gait Training Teaching Recipient: Patient Teaching Methods: Demonstration, Discussion Response to Teaching: Verbalize Understanding, Return Demonstration Time/GCodes Time In: 827 Time Out: 840 Total Billed Treatment Time: 13 Total Billed Treatment Visit, SALAS Aguilar PT Jan 09, 2022 09:05
[2022-01-09] MEDS ORDERED: NICOTINE 14 MG (NICODERM) PATCH TD NR (10:30)
[2022-01-09] MEDS: dilTIAZem DRIP PRE-MIX 125 ML IV SCH ×2 (10:42→21:29)
[2022-01-09] MEDS ORDERED: DIGOXIN 0.125 MG (LANOXIN) TAB PO NR (12:00)
--- NOTE | 2022-01-09 12:00 | Progress Note - Hospitalist ---
Subjective HPI/CC On Admission Date Seen by Provider: Jan 09, 2022 Time Seen by Provider: 11:57 Patient is 76-year-old male with past medical history of COPD, atrial fibrillation, lung cancer who presented to the emergency department at [facility] due to shortness of breath. He reports chronic oxygen dependency and shortness of breath but this morning it acutely worsened. He normally is able to belch and get relief but that did not provide him any relief today. He decided to seek evaluation in the emergency department when it persisted and was found to be in atrial fibrillation with rapid ventricular rate in the 160s. He was placed on a Cardizem drip and transferred here for cardiology services. He reports feeling much better now and has no dyspnea. He denies any chest pain, palpitations, diaphoresis, nausea, vomiting. He does report a long history of atrial fibrillation for which she is on Coumadin for anticoagulation. He is unsure what other cardiac meds he is on. He did just moved to [facility] on January 03. He reports being compliant with all of his medications throughout the move. Subjective/Events-last exam Pt reports feeling well. No complaints, Still asking to DC home. Daughter at bedside and requests nicotine patch and she thinks that will help with his desire to leave. Objective Exam Vital Signs Vital Signs Date Time Temp Pulse Resp B/P (MAP) Pulse Ox O2 Delivery O2 Flow Rate FiO2 01/09/22 11:00 92 16 118/83 94 Nasal Cannula 3.00 01/09/22 08:00 36.3 Capillary Refill : General Appearance: Chronically ill, Thin Respiratory: Lungs Clear, No Respiratory Distress Cardiovascular: Irregularly Irregular, Tachycardia Gastrointestinal: Normal Bowel Sounds, Non Tender, Soft Neurologic/Psychiatric: Alert, Oriented x3 Results/Procedures Lab Laboratory Tests 01/09/22 04:33 Patient resulted labs reviewed. Assessment/Plan Assessment and Plan Assess & Plan/Chief Complaint a fib with RVR Follows with Dr Hamm in [facility] Currently on cardizem gtt- still tachycardiac Digoxin added this morning [facility] consulted, appreciate recs Echo with newly diagnosed cardiomyopathy COPD Lung Cancer Esophageal cancer Tobacco abuse Wears oxygen at baseline Continue home meds Reports cancer in remission but also said it's in his shoulder? records from [facility] waiting for these Nicotine patch added DVT ppx: [facility] Critical Care Critically Ill Patient Diagnosis/Problems Diagnosis/Problems (1) COPD (chronic obstructive pulmonary disease) Qualifiers: COPD type: emphysema Emphysema type: unspecified Qualified Codes: J43.9 - Emphysema, unspecified (2) Essential (primary) hypertension (3) Tobacco abuse (4) Lung cancer Qualifiers: Laterality: unspecified laterality Lung location: unspecified part of lung Qualified Codes: C34.90 - Malignant neoplasm of unspecified part of unspecified bronchus or lung (5) Esophageal cancer (6) Atrial fibrillation with RVR MAO INGRAM MD Jan 09, 2022 12:00
[2022-01-09] MEDS ORDERED: polyethylene glycoL POWDER 17 GM (MIRALAX) PACK PO SCH (21:00)
[2022-01-09] MEDS: DOCUSATE SODIUM 100 MG (COLACE) CAP PO SCH (21:29)
[2022-01-10] MEDS: RT-ALBUTEROL SULF 2.5 MG/3 ML PRE-MIX VIAL INH SCH ×4 (02:29→14:59)
[2022-01-10 05:00] LABS: HEMATOCRIT 43 % (40-54); HEMOGLOBIN 14.3 g/dL (13.3-17.7); MEAN CORPUSCULAR HEMOGLOBIN 33 pg (25-34); MEAN CORPUSCULAR HGB CONC 33 g/dL (32-36); MEAN CORPUSCULAR VOLUME 101 fL (80-99); MEAN PLATELET VOLUME 9.8 fL (9.0-12.2); PLATELET COUNT 215 10^3/uL (130-400); WHITE BLOOD COUNT 13.8 10^3/uL (4.3-11.0)
[2022-01-10 05:17] LABS: POTASSIUM 4.1 MMOL/L (3.6-5.0)
[2022-01-10 05:18] LABS: CALCIUM 9.1 MG/DL (8.5-10.1)
[2022-01-10 05:22] LABS: CREATININE SERUM 0.66 MG/DL (0.60-1.30)
[2022-01-10] MEDS: APIXABAN 5 MG (ELIQUIS) TABLET PO SCH (07:55)
[2022-01-10] MEDS: predniSONE 10 MG TAB PO SCH (07:56)
[2022-01-10] MEDS: meTOproloL SUCCINATE 50 MG (TOPROL XL) TAB PO SCH (07:56)
[2022-01-10] MEDS: lisINopril 5 MG (PRINIVIL) TABLET PO SCH (07:56)
[2022-01-10] MEDS: LORATADINE (CLARITIN) 10 MG TAB PO SCH (07:56)
[2022-01-10] MEDS: busPIRone 10 MG (BUSPAR) TAB PO SCH (07:56)
--- NOTE | 2022-01-10 08:55 | Tele-ICU Progress Note ---
Subjective Date Seen by a Provider: Jan 10, 2022 Time Seen by a Provider: 06:50 Subjective/Events-last exam This virtual visit was conducted using real time audio/video. Thank you for asking us to see this patient for respiratory insufficiency due to COPD. Admitted w Afib/RVR Recent events: none overnight PMH: COPD/home O2, afib, lung CA. SH: smoking history: current PE: Appears comfortable on camera, sitting in chair. HR 90-120 afib. O2 sat 95% on 2 LPM NC. HEENT: No obvious masses, adenopathy or JVD. Chest: clear to auscultation. diminished CV: irreg S1 S2 No murmur or added sounds. Abd: Non-tender. Bowel sounds Y. : Unremarkable. Li N. [employer] F[employer] MANAGER/psychiatric: Grossly intact. No obvious focal findings. Extremities: trace edema. Capillary refill < 3 seconds. Skin: unremarkable. Results: Elevated WCC 13.8, BG 109. CXR: Hyperinflated. Available chart/ vitals / labs / images reviewed. Video assessment done using teleICU camera, rest of exam as per RN. A/P: Respiratory insufficiency: Continue present management with O2, Incruse, airduo, Pred., Nicoderm Monitor for increasing oxygenation needs and/or need for intubation. Critical Care: critically ill patient. Cont. Paulie., zaida., Yvette., Alexitin, Luis Manuel, Evelin., Dig. Discussed with RN Nicolette. Asked RN to reach out to eICU if any questions or concerns later. Time spent with patient/coordination of care with other health professionals (mins):20. Sepsis Event Evaluation Height, Weight, BMI Height: '" Weight: lbs. oz. kg; 21.06 BMI Method: Exam Exam Patient acknowledged, consented, and participated in this virtual visit which was conducted using real time audio/video Vital Signs Date Time Temp Pulse Resp B/P (MAP) Pulse Ox O2 Delivery O2 Flow Rate FiO2 01/10/22 08:00 36.0 Room Air 01/10/22 08:00 103 17 128/93 94 Room Air 01/10/22 07:35 91 Room Air 0.00 01/10/22 07:00 105 14 112/88 94 Nasal Cannula 3.00 01/10/22 07:00 114 01/10/22 06:00 92 14 131/80 99 Nasal Cannula 3.00 01/10/22 05:00 96 20 112/94 99 Nasal Cannula 3.00 01/10/22 04:00 37.0 01/10/22 04:00 102 20 103/73 99 Nasal Cannula 3.00 01/10/22 04:00 Nasal Cannula 3.00 01/10/22 03:00 98 28 117/73 96 Nasal Cannula 3.00 01/10/22 02:30 98 Nasal Cannula 2.00 01/10/22 02:00 99 13 126/88 99 Nasal Cannula 3.00 01/10/22 01:00 85 01/10/22 01:00 85 12 122/96 99 Nasal Cannula 3.00 01/10/22 00:00 96 16 122/77 99 Nasal Cannula 3.00 01/10/22 00:00 Nasal Cannula 3.00 01/09/22 23:00 86 20 115/94 99 Nasal Cannula 3.00 01/09/22 22:35 94 Nasal Cannula 2.00 01/09/22 22:00 112 136/82 Nasal Cannula 3.00 01/09/22 21:00 90 25 118/103 98 Nasal Cannula 3.00 01/09/22 20:00 Nasal Cannula 3.00 01/09/22 20:00 89 22 121/97 100 Nasal Cannula 3.00 01/09/22 19:00 96 01/09/22 19:00 105 18 122/100 88 Nasal Cannula 3.00 01/09/22 18:41 93 Nasal Cannula 2.00 01/09/22 18:00 94 20 130/74 96 Nasal Cannula 3.00 01/09/22 17:00 121 23 130/87 96 Nasal Cannula 3.00 01/09/22 16:00 112 19 103/81 95 Nasal Cannula 3.00 01/09/22 16:00 Nasal Cannula 3.00 01/09/22 16:00 36.4 01/09/22 15:00 84 23 115/80 95 Nasal Cannula 3.00 01/09/22 14:30 96 Nasal Cannula 2.00 01/09/22 14:00 96 20 112/59 99 Nasal Cannula 3.00 01/09/22 13:00 89 15 125/84 Nasal Cannula 3.00 01/09/22 12:43 105 01/09/22 12:00 103 16 114/94 91 Nasal Cannula 3.00 01/09/22 12:00 36.0 Nasal Cannula 3.00 01/09/22 12:00 Nasal Cannula 3.00 01/09/22 11:00 92 16 118/83 94 Nasal Cannula 3.00 01/09/22 10:58 96 Nasal Cannula 2.00 01/09/22 10:00 90 17 120/67 94 Nasal Cannula 3.00 01/09/22 09:00 130 19 102/68 96 Nasal Cannula 3.00 I & O 01/10/22 07:00 Intake Total 2235 ml Output Total 4475 ml Balance -2240 ml Height & Weight Height: '" Weight: lbs. oz. kg; 21.06 BMI Method: General Appearance: Chronically ill, Thin HEENT: PERRL/EOMI, Moist Mucous Membranes; No Scleral Icterus (L), No Scleral Icterus (R) Neck: Normal Inspection, Supple Respiratory: Lungs Clear, No Respiratory Distress Cardiovascular: Irregularly Irregular, Tachycardia Extremity: Normal Capillary Refill, No Calf Tenderness, Pedal Edema, Swelling (2+ to calves) Neurologic/Psychiatric: Alert, Oriented x3 Results Lab Laboratory Tests 01/09/22 04:33 01/10/22 04:40 Assessment/Plan Assessment/Plan See free text. Critical Care: Critically Ill Patient ANA ESCALERA MD Jan 10, 2022 08:55
[2022-01-10] MEDS ORDERED: DIGOXIN 0.125 MG (LANOXIN) TAB PO SCH (09:00)
[2022-01-10] MEDS ORDERED: NICOTINE 14 MG (NICODERM) PATCH TD SCH (09:00)
[2022-01-10] MEDS: UMECLIDINIUM BROMIDE (INCRUSE ELLIPTA) 7'S IH SCH (10:21)
[2022-01-10] MEDS: RT--FLUTICASONE/SALMETEROL 232-14 (AIRDUO RespiCLICK) IH SCH (10:22)
--- NOTE | 2022-01-10 10:24 | Cardiology Progress Note ---
Progress Note-Cardiology Events since last exam Date Seen by Provider: Jan 10, 2022 Time Seen by Provider: 10:19 Events since last exam I am following him due to permanent atrial fibrillation and acute heart failure with reduced ejection fraction. He remains in the intensive care unit. This morning his nurse stopped the intravenous diltiazem infusion. He feels like his breathing is at his baseline and he wants to go home. He denies chest discomfort, palpitations, syncope, or ankle edema. Certain portions of this document may have been dictated utilizing voice recognition technology. Inherent to this technology, typographical and grammatical errors may exist. As much as I am diligent to identify and correct these mistakes, some errors may remain in the document. Vitals Last set of Vitals Signs Vital Signs 01/10/22 01/10/22 08:00 09:00 Temp 36.0 Pulse 86 Resp 25 B/P (MAP) 122/74 Pulse Ox 94 O2 Delivery Room Air O2 Flow Rate 2.00 Labs Labs Laboratory Tests 01/10/22 04:40 Exam Vital Signs Vital Signs Date Time Temp Pulse Resp B/P (MAP) Pulse Ox O2 Delivery O2 Flow Rate FiO2 01/10/22 09:00 86 25 122/74 Room Air 01/10/22 08:00 36.0 01/10/22 08:00 2.00 01/10/22 08:00 94 Physical Exam General: Alert. No acute distress. He is underweight and appears chronically ill. Eye: No xanthelasma. HENT: Normocephalic. Neck: Jugular venous pressure does not appear elevated. Respiratory: Lungs are clear to auscultation but with decreased breath sounds throughout. Respirations are non-labored. Breath sounds are equal. Symmetrical chest wall expansion. Cardiovascular: Tachycardia with irregular rhythm. Distant S1/S2. No murmur. No gallop. No edema. Gastrointestinal: Soft. Normal bowel sounds. Skin: Warm. Dry. Neurologic: Alert and oriented to person, place, time. Cranial nerves 3-11 grossly intact. Psychiatric: Cooperative. Appropriate mood & affect. Labs Laboratory Tests Test 01/10/22 04:40 Range/Units White Blood Count 13.8 H 4.3-11.0 10^3/uL Red Blood Count 4.30 4.30-5.52 10^6/uL Hemoglobin 14.3 13.3-17.7 g/dL Hematocrit 43 40-54 % Mean Corpuscular Volume 101 H 80-99 fL Mean Corpuscular Hemoglobin 33 25-34 pg Mean Corpuscular Hemoglobin Concent 33 32-36 g/dL Red Cell Distribution Width 13.8 10.0-14.5 % Platelet Count 215 130-400 10^3/uL Mean Platelet Volume 9.8 9.0-12.2 fL Sodium Level 139 135-145 MMOL/L Potassium Level 4.1 3.6-5.0 MMOL/L Chloride Level 102 98-107 MMOL/L Carbon Dioxide Level 26 21-32 MMOL/L Anion Gap 11 5-14 MMOL/L Blood Urea Nitrogen 17 7-18 MG/DL Creatinine 0.66 0.60-1.30 MG/DL Estimat Glomerular Filtration Rate 98 BUN/Creatinine Ratio 26 Glucose Level 109 H 70-105 MG/DL Calcium Level 9.1 8.5-10.1 MG/DL Diagnosis/Problems Diagnosis/Problems (1) Permanent atrial fibrillation Assessment & Plan: From his description, he most likely has permanent atrial fibrillation. Prior to admission, he had been taking metoprolol tartrate and diltiazem for rate control and warfarin for stroke prophylaxis. Now due to his acute on chronic respiratory failure, I suspect this caused tachycardia. He also has a depressed ejection fraction. I changed his metoprolol to tartrate over to metoprolol succinate on 01/07. I increased the dose to twice daily on 01/08 and also gave him a dose of intravenous metoprolol tartrate. Due to the low ejection fraction, I would be hesitant to restart diltiazem. I also changed his warfarin over to apixaban for stroke prophylaxis. On 01/09, I started him on digoxin with 1 intravenous dose followed by 1 oral dose. He is now off the diltiazem infusion. I suspect he will have chronic tachycardia related to his chronic respiratory failure. I would not necessarily be opposed to him being discharged today. (2) Acute HFrEF (heart failure with reduced ejection fraction) Assessment & Plan: He has no previous history of heart failure. His ejection fraction is 35-40%. He is on metoprolol succinate. He was on lisinopril at home which has been reordered but I reduced the dose so we could give him more beta-daniel. As above, I would suggest we stop his diltiazem which he was taking at home since this does not have any role in treatment of heart failure with reduced ejection fraction and could actually make symptoms worse. His ejection fraction is just above the cutoff for recommending a LifeVest. His chest x-ray from 01/08 did not show any overt pulmonary edema. (3) Cardiomyopathy Assessment & Plan: Exact etiology unclear. Some of this may be due to the tachycardia that was occurring during the echocardiogram and there could be some improvement when his tachycardia improves. I made medication changes as outlined above. At some point, we may need to consider an ischemic evaluation but I would suggest this be done electively as an outpatient. (4) Primary hypertension Assessment & Plan: His blood pressure has been reasonably controlled on the present combination of cardiac medications. I recommend he be discharged with the current combination of cardiac medications as he has been taking here in the hospital. I will take the liberty of sending these to his pharmacy. (5) Generalized anxiety disorder Assessment & Plan: Unclear whether or not this could be contributing to the tachycardia. He has been taking buspirone at home and is receiving it here. I also gave him a one-time dose of clonazepam on 01/09 and he seems less anxious today. (6) Acute respiratory failure with hypoxia and hypercapnia Assessment & Plan: Most likely multifactorial due to his chronic obstructive pulmonary disease and heart failure. (7) Cancer of upper lobe of right lung Assessment & Plan: He may need to connect with a local oncologist for management. [place]. (8) Chronic obstructive pulmonary disease Assessment & Plan: As above. (9) Cigarette smoker Assessment & Plan: He was counseled about smoking cessation. He knows he needs to quit. Nicotine patch has been ordered. HATTIE HARPER JR, MD Jan 10, 2022 10:24
[2022-01-10] MEDS ORDERED: METO50TA7 PO (10:29)
[2022-01-10] MEDS ORDERED: NICO1PAT38 TD (10:29)
[2022-01-10] MEDS ORDERED: DIGO125T18 PO (10:29)
[2022-01-10] MEDS ORDERED: LISI5TAB20 PO (10:29)
[2022-01-10] MEDS ORDERED: APIX5TAB PO (10:29)
--- NOTE | 2022-01-10 10:48 | Discharge Inst-Simple/Standard ---
Discharge Inst-Standard Discharge Medications New, Converted or Re-Newed RX: Transmitted to Pharmacy Patient Instructions/Follow Up Plan of Care/Instructions/FU: Please continue to take your medications as written. Please follow up with your primary care doctor to follow up this hospital stay. Activity as Tolerated: Yes Discharge Diet: Cardiac Diet Return to The Hospital For: Chest pain, racing heart, shortness of breath, fever, weakness, if you feel you are getting worse. MAO INGRAM MD Jan 10, 2022 10:48
== END 2022-01-10 17:10 | disposition home or self-care (01) | DRG 308 ==
LOC: ICU 09:45
PROVIDERS: ADMIT Family Medicine; ATTEND Family Medicine
DX: I48.21 Permanent atrial fibrillation (principal); J96.21 Acute and chronic respiratory failure with hypoxia; I50.23 Acute on chronic systolic (congestive) heart failure; J96.22 Acute and chronic respiratory failure with hypercapnia; C34.11 Malignant neoplasm of upper lobe, right bronchus or lung; C15.9 Malignant neoplasm of esophagus, unspecified; I42.9 Cardiomyopathy, unspecified; I11.0 Hypertensive heart disease with heart failure; F41.1 Generalized anxiety disorder; J43.9 Emphysema, unspecified; R00.0 Tachycardia, unspecified; H91.90 Unspecified hearing loss, unspecified ear; Z28.310 Unvaccinated for COVID-19; F17.210 Nicotine dependence, cigarettes, uncomplicated; Z79.899 Other long term (current) drug therapy; Z79.01 Long term (current) use of anticoagulants; Z99.81 Dependence on supplemental oxygen; Z79.52 Long term (current) use of systemic steroids
CPT/HCPCS: 36415; 71046; 80048; 80061; 84443; 85007; 85027; 93005; 93306; 94640

== ENCOUNTER → 2022-06-25 | Outpatient (CLI) | payer MEDICARE, OTHER ==
[~2022-06-25] MED LIST: ALB0.5V INH; ALBU6.7H13 INH; APIX5TAB PO; BENZ100C18 PO; BUDE10.2 IH; BUSP10TA95 PO; DIGO125T18 PO; DILT120T3 PO; DILT180C84 PO; DOCU-143 PO; GUAI400T86 PO; LEVO5TAB12 PO; LISI10TA25 PO; LISI5TAB20 PO; METO50TA15 PO; METO50TA7 PO; NICO1PAT38 TD; OMEP20CA18 PO; ONDA-105 PO; PNV1CAPS15 PO; POLY17PO54 PO; PRD10T PO; TIOT4MIS2 IH; WARF-48 PO
== END ==
LOC: CARD 12:51
PROVIDERS: ATTEND Internal Medicine Cardiovascular Disease
DX: I34.0 Nonrheumatic mitral (valve) insufficiency (principal); I42.9 Cardiomyopathy, unspecified
CPT/HCPCS: 93306